=== PATIENT | female | born 1990 | race Caucasian/White ===

== ENCOUNTER 2019-06-09 21:28 | Inpatient (IN) | payer OTHER, SELFPAY ==
[2019-06-09] VITALS (40 sets, daily range): BP systolic 104–211; BP diastolic 59–198; PULSE 79–160; TEMP 36.6; O2SAT 95–100; BMI 31.6
[2019-06-09 21:58] LABS: Basophils Percent Auto 0.3 % (0.2-1.2); Eosinophils Absolute Auto 0.1 K/mm3 (0-0.3); Eosinophils Percent Auto 0.7 % (0-4.4); Hematocrit 38.9 % (37.0-47.0); Hemoglobin 13.2 g/dL (12.0-15.0); Immature Granulocyte Absolute 0.07 K/mm3 (0.00-0.031); Immature Granulocyte Percent A 0.6 % (0-0.5); Lymphocytes Absolute Auto 2.82 K/mm3 (0.9-3.2); Lymphocytes Percent Auto 25.2 % (18.3-44.2); Mean Corpuscular HGB Conc 33.9 g/dl (32-36); Mean Corpuscular Hemoglobin 31.1 pg (26-34); Mean Corpuscular Volume 91.7 fl (80-100); Mean Platelet Volume 9.6 fl (7.4-10.4); Monocytes Absolute Auto 0.8 K/mm3 (0.1-0.6); Monocytes Percent Auto 7.1 % (2.6-8.5); Neutrophils Absolute Auto 7.4 K/mm3 (1.3-6.7); Neutrophils Percent Auto 66.1 % (45.5-73.1); Platelet Count Result 346 k/mm3 (150-375); Red Blood Count 4.24 M/mm3 (4.2-5.4); Red Cell Distribution Width 13.9 % (11.5-14.5); White Blood Count 11.2 K/mm3 (4.5-10.0)
[2019-06-09] MEDS: LACTATED RINGERS 1,000 ML 125 ML IV CONT (21:59)
[2019-06-09] MEDS: AMPICILLIN 2 GM/NS 100 ML 2 GM/100 ML BAG IVPB (21:59)
--- NOTE | 2019-06-09 22:07 | LDADM ---
This patient, Thelma Bain, was admitted to Labor/Delivery/Recovery 105 on 06/09/19 at 21:28. Plans for labor, pain management and were discussed with patient. Patient/family oriented to hospital policies and general routines including ID bracelet, bed and alarms, visiting hours, pain management, procedures, bathroom and other care routines, personal items, smoking policy, room service/diet and guest tray routines, security routines, and visiting hours. Patient/Family are encouraged to report perceived risks to care and to ask questions if they do not understand what they are told or what they should do. See OBIX for further documentation.
--- NOTE | 2019-06-09 22:14 | WPDHPUPDATE1 ---
History and Physical Update Update Date/Time: 06/09/19 22:14 Thelma Bain is a 28 yo at 38w6d who presents in labor. She denies any vaginal bleeding or LOF. She endorses good movement. Her has been uncomplicated to this date. History and Physical has been reviewed, including an updated exam of the patient. There are NO changes in the patient's condition. Risks, benefits, and alternatives have been discussed and questions answered. Patient agrees to proceed with procedure. A/P: admit to L&D routine admission orders GBS+, will start abx Rh+ FHT category 1 regular contractions on toco patient may have epidural expectant management
--- NOTE | 2019-06-09 22:29 | P.PNAN_ITS ---
Anes - Eval Pre Procedure Procedure: labor epidural Date/Time: 06/09/19 22:29 Surgeon: Yoselyn Preop Diagnosis: Labor pain Pre Op Diagnosis: contractions Patient Data Age: 28 Gender: F Height: Weight: Last Vital Signs Temp 36.6 C 06/09/19 22:02 Pulse 104 H 06/09/19 22:28 BP 119/78 06/09/19 22:28 Pulse Ox 100 06/09/19 22:24 Allergies Allergy/AdvReac Type Severity Reaction Status Date / Time No Known Allergies Allergy Verified 05/28/19 13:25 Home Medications Medication Instructions Recorded Confirmed Type PNV cmb#95-ferrous fumarate-FA 1 tablet PO DAILY 05/28/19 05/28/19 History [] Laboratory Tests 06/09/19 06/09/19 06/09/19 21:50 21:50 21:50 WBC 11.2 K/mm3 H K/mm3 (4.5-10.0) RBC 4.24 M/mm3 M/mm3 (4.2-5.4) Hgb 13.2 g/dL g/dL (12.0-15.0) Hct 38.9 % % (37.0-47.0) MCV 91.7 fl fl (80-100) MCH 31.1 pg pg (26-34) MCHC 33.9 g/dl g/dl (32-36) RDW 13.9 % % (11.5-14.5) Plt Count 346 k/mm3 k/mm3 (150-375) MPV 9.6 fl fl (7.4-10.4) Immature Gran % (Auto) 0.6 % H % (0-0.5) Neut % (Auto) 66.1 % % (45.5-73.1) Lymph % (Auto) 25.2 % % (18.3-44.2) [place] % (Auto) 7.1 % % (2.6-8.5) Eos % (Auto) 0.7 % % (0-4.4) Baso % (Auto) 0.3 % % (0.2-1.2) Lymph # (Auto) 2.82 K/mm3 K/mm3 (0.9-3.2) [place] # (Auto) 0.8 K/mm3 H K/mm3 (0.1-0.6) Eos # (Auto) 0.1 K/mm3 K/mm3 (0-0.3) Baso # (Auto) 0.0 K/mm3 K/mm3 (0.0-0.1) Abs Immat Gran (auto) 0.07 K/mm3 H K/mm3 (0.00-0.031) Absolute Neuts (auto) 7.4 K/mm3 H K/mm3 (1.3-6.7) Absolute Nucleated RBC 0.0 K/mm3 K/mm3 (0.0-0.012) Nucleated RBC % 0.0 % % (0.0-0.2) RPR Pending Blood Type Pending Antibody Screen Pending Patient hx anesthesia problems: none Family hx anesthesia problems: none PMFSH Family History Family History (Updated 05/28/19 @ 13:27 by Shaheed Argueta RN) Other No pertinent family history Social History Social History Smoking status: Never smoker Second hand tobacco smoke exposure: No Substance use: never Gender identity (if verbalized by the patient): Female Spiritual care concerns: No Exam Day of Procedure 06/09/19 22:29
[2019-06-10] VITALS (25 sets, daily range): BP systolic 105–194; BP diastolic 60–161; PULSE 75–162; RESP 12–18; TEMP 36.7–36.9; O2SAT 97–100
[2019-06-10] MEDS: OXYTOCIN 30 UNITS/NS 500 ML 30 UNITS/500 ML BAG 999 UNITS IV CONT (01:00)
--- NOTE | 2019-06-10 01:08 | PM.OBPRVD ---
OB - Delivery Note Procedure Procedure: Patient pushed for a spontaneous vaginal delivery. The fetus was delivered atraumatically and placed on the maternal abdomen. The cord was clamped and cut after 1 minute of life. The cord was double clamped and cut and a segment of cord was collected for cord gases. Cord blood was collected for blood type and Coomb's testing. The placenta delivered spontaneously and was noted to be intact. The perineum was inspected and there was a 1st degree perineal laceration. The laceration was repaired with 3-0 vicryl in the usual fashion. The uterus was firm and good hemostasis was noted. The patient and fetus were stable in the delivery room. events: Meconium Stained Fluid Induction method: none Delivery augmentation: rupture of membranes Delivery monitor: external FHT Route of delivery: Episiotomy description: None Laceration description: Perineal - 1st Degree Delivery repair: vicryl Specimen: No Estimated blood loss (mL): 200 Anesthesia type: Epidural Disposition: floor () Complications: No immediate complications Baby Date of : 06/10/19 Time of : 00:55 Weeks of gestation at delivery: 39 gender: Female Weight (pounds): 7 Weight (ounces): 3 presentation: vertex position: Right Occiput Anterior Placenta delivery description: Spontaneous cord vessel description: 3 Vessels and Clamped/Cut score one minute: 8 score five minutes: 9
[2019-06-10] MEDS: IBUPROFEN 600 MG TABLET PO (03:24)
[2019-06-10] MEDS: WITCH HAZEL 40 PADS 1 PAD TOPICAL (03:25)
[2019-06-10] MEDS: BENZOCAINE 20% AER SPR (*SP) 56 GM CAN 1 SPRAY TOPICAL (03:25)
--- NOTE | 2019-06-10 03:42 | PC.NURSE ---
Patient transferred to post room #282 via wheelchair. Support person present. Oriented to unit, room, information board, rooming in, admission packet and security measures. Patient verbalizes understanding.
--- NOTE | 2019-06-10 07:42 | PM.OBPNVD ---
OB - PN: Subj Subjective Date/time seen: 06/10/19 07:42 Patient comments: no complaints, pain well controlled and tolerating diet [place] feeding status: exclusively breast feeding Narrative: patient doing well this AM. No complaints. Pain is well controlled. She reports minimal bleeding. She is ambulating and voiding without difficulty. She is tolerating PO. She denies N/V, fever, chills. OB - PN: Obj Data Labs CBC & Chem 7: 06/09/19 21:50 Labs: Laboratory Results - last 24 hr 06/09/19 06/09/19 21:50 21:50 WBC 11.2 H RBC 4.24 Hgb 13.2 Hct 38.9 MCV 91.7 MCH 31.1 MCHC 33.9 RDW 13.9 Plt Count 346 MPV 9.6 Immature Gran % (Auto) 0.6 H Neut % (Auto) 66.1 Lymph % (Auto) 25.2 [place] % (Auto) 7.1 Eos % (Auto) 0.7 Baso % (Auto) 0.3 Lymph # (Auto) 2.82 [place] # (Auto) 0.8 H Eos # (Auto) 0.1 Baso # (Auto) 0.0 Abs Immat Gran (auto) 0.07 H Absolute Neuts (auto) 7.4 H Absolute Nucleated RBC 0.0 Nucleated RBC % 0.0 Blood Type A Positive Antibody Screen Negative OB - PN A/P Plan day: 1 Plan: routine care Comments: patient doing well H/H stable continue routine care Time Spent With Patient Time: Total time spent is greater than 50% in coordination of care (as documented) at patient's floor/unit and/or counseling patient: Time with patient: less than 15 minutes Review of Systems Review of Systems: All systems reviewed & are unremarkable except as noted in HPI and below Exam Const: General: comfortable and no acute distress Resp: Effort & Inspection: normal respiratory effort Cardio: Rate: regular rate GI: GI Palp: Yes Soft to palpation and No Tenderness to palpation present (GI) Auscultation: normal bowel sounds Other: fundus firm and below umbilicus. Psych: Affect: normal affect
[2019-06-10] MEDS: MULTIVIT/MIN/PREN/FOL AC/IRON TABLET 1 TAB PO (07:50)
[2019-06-10] MEDS: DOCUSATE SODIUM 100 MG CAPSULE PO (07:50)
[2019-06-11 05:27] LABS: Hematocrit 37.2 % (37.0-47.0); Hemoglobin 12.3 g/dL (12.0-15.0)
--- NOTE | 2019-06-11 07:32 | PM.OBDSVD ---
OB - DS: Summary OB Procedures : None OB Procedures Intrapartum: Spontaneous Vag Delivery OB Procedures: : None Status at Discharge Functional status at discharge: independent ambulation Overall status at discharge: patient is back to baseline Time Spent with Patient Time attestation: Total time spent providing and/or coordinating discharge services: Time spent: Less than 30 minutes Exam Const: General: comfortable and no acute distress Resp: Effort & Inspection: normal respiratory effort Auscultation: clear to auscultation bilaterally Cardio: Rate: regular rate GI: GI Palp: Yes Soft to palpation Auscultation: normal bowel sounds Other: Fundus firm below umbilicus Psych: Appearance: grossly normal Mental Status: mental status grossly normal Affect: normal affect DS: Data Data Completed and Pending Labs on day of discharge: Labs from last 24 hours 06/11/19 04:28 Hgb 12.3 Hct 37.2 Discharge Plan Discharge Discharging Clinician: Jaylen Toptee Patient Disposition: Home, Self-Care Activity: may shower, as tolerated and pelvic rest Diet: regular Patient Instructions: Antibiotic Form Stand Alone Forms: General Discharge Information Follow-up/Referrals: Ru Trammell MD [Physician] - 4 Weeks Discharge Medications: New ibuprofen 600 mg Tablet 600 mg PO Q6H PRN (Reason: Cramping) Qty: 30 RF: 0 acetaminophen [Mapap (acetaminophen)] 325 mg Tablet 650 mg PO Q6H PRN (Reason: Mild Pain (1-3) Or Headache) Qty: 30 RF: 0 Dermoplast (with menthol) 20-0.5 % Aerosol 1 spray topical PRN PRN (Reason: Perineal Discomfort) Qty: 1 RF: 0 Zen-I-Onqzyt Cream 1 applic topical PRN PRN (Reason: Sore Nipples) Qty: 1 RF: 0 Continued PNV cmb#95-ferrous fumarate-FA [] 28 mg iron- 800 mcg Tablet 1 tablet PO DAILY RF: 0 Date of admission: 06/09/19 21:28 Primary Care Provider: UNKNOWN,DOCTOR Admitting Provider: Ru Trammell Attending physician on admission: Ru Trammell
--- NOTE | 2019-06-11 08:00 | WPDANLDPN2 ---
Anes-Prog Note L&D Date/Time: 06/11/19 08:00 Comfortable throughout: labor and delivery Neuraxial method: epidural Epidural/Spinal procedure site: clean & non-tender Neuro status: Neuro function grossly intact. Cardiovascular status: normal Respiratory status: normal Airway patency: baseline Mental status: baseline Post-Op hydration status: normal Vital Signs: Last Vital Signs Temp 36.7 C 06/10/19 19:00 Pulse 83 06/10/19 19:00 Resp 16 06/10/19 19:00 BP 113/69 06/10/19 19:00 Pulse Ox 97 06/10/19 08:22 Post-procedural complaints: none Patient feedback: Patient satisfied with anesthetic care.
[2019-06-11 08:35] VITALS: BP 111/74; PULSE 81; RESP 18; TEMP 36.4
[2019-06-11 09:40] LABS: Rapid Plasma Reagin Non-Reactive (NonReactive)
[2019-06-12 10:51] VITALS: BP 132/78; PULSE 83; RESP 20; TEMP 36.9
== END 2019-06-11 10:17 | disposition home or self-care (01) | DRG 807 ==
LOC: ANHLDR 21:44 → ANHOB2 06-11 07:33 → ANHLDR 06-12 09:38 → ANHOB2 06-12 09:38
PROVIDERS: Admitting Provider Student in an Organized Health Care Education/Training Program; Visit Provider Student in an Organized Health Care Education/Training Program
DX: O99.824 Streptococcus B carrier state complicating childbirth (principal); Z37.0 Single live birth; Z3A.39 39 weeks gestation of pregnancy; O70.0 First degree perineal laceration during delivery; Z23 Encounter for immunization; O77.0 Labor and delivery complicated by meconium in amniotic fluid
CPT/HCPCS: 36415; 85014; 85018; 85025; 86592; 86850; 86900; 86901; A9270; J0290; J2590; J2795; J7120

== ENCOUNTER 2020-08-22 17:40 | Emergency (ER) | payer BC, SELFPAY ==
[2020-08-22 17:53] VITALS: BP 123/73; PULSE 114; RESP 20; TEMP 36.6; O2SAT 96
[2020-08-22 18:03] LABS: Basophils Percent Auto 0.1 % (0.2-1.2); Eosinophils Percent Auto 0.1 % (0-4.4); Hematocrit 40.5 % (37.0-47.0); Hemoglobin 13.3 g/dL (12.0-15.0); Immature Granulocyte Absolute 0.07 K/mm3 (0.00-0.031); Immature Granulocyte Percent A 0.5 % (0-0.5); Lymphocytes Absolute Auto 0.83 K/mm3 (0.9-3.2); Mean Corpuscular HGB Conc 32.8 g/dl (32-36); Mean Corpuscular Hemoglobin 31.2 pg (26-34); Mean Corpuscular Volume 95.1 fl (80-100); Mean Platelet Volume 8.6 fl (7.4-10.4); Monocytes Absolute Auto 0.5 K/mm3 (0.1-0.6); Monocytes Percent Auto 3.8 % (2.6-8.5); Neutrophils Absolute Auto 12.5 K/mm3 (1.3-6.7); Neutrophils Percent Auto 89.5 % (45.5-73.1); Platelet Count Result 332 k/mm3 (150-375); Red Blood Count 4.26 M/mm3 (4.2-5.4); Red Cell Distribution Width 12.9 % (11.5-14.5); White Blood Count 13.9 K/mm3 (4.5-10.0)
[2020-08-22 18:13] LABS: Alanine Aminotransferase 13 U/L (4-35); Albumin Level 3.8 g/dL (3.5-5.1); Alkaline Phosphatase 61 U/L (38-126); Anion Gap 9 mmol/L (8-16); Aspartate Amino Transferase 22 U/L (14-36); Bilirubin,Total 0.8 mg/dL (0.2-1.3); Blood Urea Nitrogen 5 mg/dL (7-17); Carbon Dioxide 20 mmol/L (22-30); Chloride 107 mmol/L (98-107); Estimated CRCL calculation 125 ml/min; Estimated Glomerular Filt Rate > 60; Glucose 83 mg/dL (65-105); Lipase 83 U/L (23-300); Potassium 3.7 mmol/L (3.4-5.0); Sodium 136 mmol/L (137-145)
[2020-08-22 18:43] LABS: Add Urine Microscopic? YES; Appearance Urine Cloudy (Clear); Bacteria Urine Trace /hpf; Bilirubin Urine Negative (Negative); Blood Urine Negative (Negative); Color Urine Yellow (Yellow); Glucose Urine UA Negative (Negative); Ketones Urine 2+ mg/dL (Negative); Leukocyte Esterase Ur Negative LEU/UL (Negative); Mucus Urine Few /lpf; Nitrate Urine Negative (Negative); Protein Urine 2+ mg/dL (Negative); Specific Grav Ur 1.025 (1.001-1.035); Squamous Epithelial Cell Urine Many /hpf (Few); Urobilinogen Urine Negative mg/dL (<2.0); WBC Urine 0-3 /hpf
[2020-08-22] MEDS: ONDANSETRON INJ 4 MG/2 ML VIAL IV PUSH (19:46)
--- NOTE | 2020-08-22 20:38 | ED.NAVMDI ---
HPI - Nausea/Vomiting/Diarrhea General Chief complaint: Nausea/Vomiting/Diarrhea Stated complaint: N/V 26 weeks Time Seen by Provider: 08/22/20 19:30 History of Present Illness HPI Narrative: Patient is a 30-year-old female who presents to the ER with nausea and vomiting. She is 26 weeks along in her . She sees Dr. Trammell. She reports that she has had 5-6 episodes of emesis today with 2 loose stools. No fevers or chills or sweats. No known sick contacts. No abdominal pain or cramping. She feels her baby moving. No vaginal bleeding or leakage of fluid from vagina. She has been unable to keep down food or water and was referred here for hydration. Related Data Home Medications Medication Instructions Recorded Confirmed PNV cmb#95-ferrous fumarate-FA 1 tablet PO DAILY 05/28/19 05/28/19 [] Allergies Allergy/AdvReac Type Severity Reaction Status Date / Time No Known Allergies Allergy Verified 06/29/19 08:19 Review of Systems Review of Systems: All systems reviewed & are unremarkable except as noted in HPI and below Constitutional: Constitutional: Denies chills, Denies fever(s) and Denies weakness ENT: Denies nasal congestion and Denies sore throat Gastrointestinal: Gastrointestinal: Denies abdominal pain, Denies constipation, Reports diarrhea, Reports nausea and Reports vomiting Genitourinary: Genitourinary: Denies abnormal vaginal bleeding, Denies nocturia, Denies dysuria, Denies pelvic pain and Denies vaginal discharge PMFSH Past Medical History Medical History (Updated 08/22/20 @ 21:27 by Oleg Leslie MD) Healthy female adult Surgical History Surgical History (Updated 08/22/20 @ 20:39 by Oleg Leslie MD) No history of previous surgery Family History Family History (System 06/29/19 @ 08:19 by Yahaira Roman) Other No pertinent family history Social History Social History (System 06/29/19 @ 08:19 by Yahaira Roman) Smoking status: Never smoker Second hand tobacco smoke exposure: No Substance use: never Gender identity (if verbalized by the patient): Female Spiritual care concerns: No Exam Narrative: Exam Narrative: GENERAL: Well-appearing, well-nourished, and in no acute distress. HEAD: Normocephalic, atraumatic. CHEST: Clear to auscultation. No respiratory distress. HEART: Tachycardic and regular. Normal peripheral pulses. ABDOMEN: Soft, nontender, nondistended. EXTREMITIES: Normal range of motion. No edema. SKIN: Warm, dry, no rash. NEURO: Alert and oriented x3. PSYCH: Normal mood and affect. Course Course Emergency Course: Patient feels much better after antiemetics and IV fluids. OB currently in the room monitoring baby. Patient be discharged as well as her no issues with OB assessment. Vital Signs Vital signs: Vital Signs Temperature 97.9 F 08/22/20 17:53 Pulse Rate 114 H 08/22/20 17:53 Respiratory Rate 20 08/22/20 17:53 Blood Pressure 123/73 08/22/20 17:53 Pulse Oximetry 96 08/22/20 17:53 Temperature 97.9 F 08/22/20 17:53 Pulse Rate 117 H 08/22/20 21:01 Respiratory Rate 20 08/22/20 20:59 Blood Pressure 116/60 08/22/20 21:01 Pulse Oximetry 100 08/22/20 20:59 MDM - Nausea/Vomiting/Diarrhea Lab Data Result diagrams: 08/22/20 17:58 08/22/20 17:58 Labs: Lab Results 08/22/20 08/22/20 08/22/20 Range/Units 17:58 17:58 18:26 WBC 13.9 H (4.5-10.0) K/mm3 RBC 4.26 (4.2-5.4) M/mm3 Hgb 13.3 (12.0-15.0) g/dL Hct 40.5 (37.0-47.0) % MCV 95.1 (80-100) fl MCH 31.2 (26-34) pg MCHC 32.8 (32-36) g/dl RDW 12.9 (11.5-14.5) % Plt Count 332 (150-375) k/mm3 MPV 8.6 (7.4-10.4) fl Immature Gran % (Auto) 0.5 (0-0.5) % Neut % (Auto) 89.5 H (45.5-73.1) % Lymph % (Auto) 6.0 L (18.3-44.2) % [place] % (Auto) 3.8 (2.6-8.5) % Eos % (Auto) 0.1 (0-4.4) % Baso % (Auto) 0.1 L (0.2-1.2) %
[2020-08-22 20:59] VITALS: BP 100/60; PULSE 109; RESP 20; O2SAT 100
[2020-08-22 21:00] VITALS: BP 100/60; BP 94/49; PULSE 106; PULSE 109
[2020-08-22 21:01] VITALS: BP 116/60; PULSE 117
--- NOTE | 2020-08-22 21:09 | PC.NURSE ---
OB CONTACTED PER ERP DR LEAL REQUEST.
[2020-08-22 21:45] VITALS: BP 112/56; PULSE 93
[2020-08-22 23:01] VITALS: BP 121/65; PULSE 85; RESP 16; O2SAT 100
== END 2020-08-22 23:03 | disposition home or self-care (01) ==
PROVIDERS: Emergency Medicine; Emergency Provider Emergency Medicine
DX: O99.612 Diseases of the digestive system complicating pregnancy, second trimester (principal); K52.9 Noninfective gastroenteritis and colitis, unspecified; Z3A.26 26 weeks gestation of pregnancy
CPT/HCPCS: 36415; 80053; 81001; 83690; 85025; 96361; 96374; 99284; J2405; J7030

== ENCOUNTER 2020-11-26 06:55 | Inpatient (IN) | payer BC, SELFPAY ==
[2020-11-26] VITALS (60 sets, daily range): BP systolic 75–137; BP diastolic 32–89; PULSE 72–123; RESP 16–18; TEMP 36.1–36.9; O2SAT 95–100; BMI 30.3
--- NOTE | 2020-11-26 07:51 | WPDOBADMIT ---
Obstetrics - Admit Note Admission Note: record reviewed. Additions to the history and/or subsequent changes in the physical findings follow. 30 y/o at 40 1/7 weeks here for induction of labor. GBS neg. EFW 7#1oz on ultrasound last week. AVSS NST reactive TOCO: rare contractions ABD soft, nontender, gravid, vertex EXT nontender Cervix 4/50/-2. Vertex. AROM with clear fluid. IUPC placed. A: IUP at 40 1/7 weeks here for induction of labor. P: Oxytocin. Anticipate .
[2020-11-26 07:52] LABS: Basophils Percent Auto 0.4 % (0.2-1.2); Eosinophils Absolute Auto 0.2 K/mm3 (0-0.3); Eosinophils Percent Auto 2.3 % (0-4.4); Hematocrit 37.3 % (37.0-47.0); Hemoglobin 12.3 g/dL (12.0-15.0); Immature Granulocyte Absolute 0.06 K/mm3 (0.00-0.031); Immature Granulocyte Percent A 0.7 % (0-0.5); Lymphocytes Percent Auto 25.1 % (18.3-44.2); Mean Corpuscular Hemoglobin 31.2 pg (26-34); Mean Corpuscular Volume 94.7 fl (80-100); Mean Platelet Volume 8.9 fl (7.4-10.4); Monocytes Absolute Auto 0.6 K/mm3 (0.1-0.6); Monocytes Percent Auto 7.4 % (2.6-8.5); Neutrophils Absolute Auto 5.4 K/mm3 (1.3-6.7); Neutrophils Percent Auto 64.1 % (45.5-73.1); Platelet Count Result 332 k/mm3 (150-375); Red Blood Count 3.94 M/mm3 (4.2-5.4); Red Cell Distribution Width 13.1 % (11.5-14.5); White Blood Count 8.4 K/mm3 (4.5-10.0)
[2020-11-26] MEDS: OXYTOCIN 30 UNITS/NS 500 ML 30 UNITS/500 ML BAG IV CONT (08:55)
[2020-11-26] MEDS: LACTATED RINGERS 1,000 ML 125 ML IV CONT ×2 (08:58→11:03)
--- NOTE | 2020-11-26 09:29 | WPDANESEPPF ---
Anes - Initial Pre Proc Eval Procedure: labor epidural Date/Time: 11/26/20 09:29 Surgeon: Ru Trammell MD Pre Op Diagnosis: labor pain Pre Op Diagnosis: IOL Patient Data Age: 30 Gender: F Height: 1.65 m Weight: 82.7 kg Last Vital Signs Pulse 86 11/26/20 09:26 BP 121/59 L 11/26/20 09:26 Pulse Ox 100 11/26/20 09:25 Allergies Allergy/AdvReac Type Severity Reaction Status Date / Time No Known Allergies Allergy Verified 06/29/19 08:19 Home Medications Medication Instructions Recorded Confirmed Type PNV cmb#95-ferrous fumarate-FA 1 tablet PO DAILY 05/28/19 10/27/20 History [] Laboratory Tests 11/26/20 11/26/20 07:19 07:19 WBC 8.4 K/mm3 K/mm3 (4.5-10.0) RBC 3.94 M/mm3 L M/mm3 (4.2-5.4) Hgb 12.3 g/dL g/dL (12.0-15.0) Hct 37.3 % % (37.0-47.0) MCV 94.7 fl fl (80-100) MCH 31.2 pg pg (26-34) MCHC 33.0 g/dl g/dl (32-36) RDW 13.1 % % (11.5-14.5) Plt Count 332 k/mm3 k/mm3 (150-375) MPV 8.9 fl fl (7.4-10.4) Immature Gran % (Auto) 0.7 % H % (0-0.5) Neut % (Auto) 64.1 % % (45.5-73.1) Lymph % (Auto) 25.1 % % (18.3-44.2) [place] % (Auto) 7.4 % % (2.6-8.5) Eos % (Auto) 2.3 % % (0-4.4) Baso % (Auto) 0.4 % % (0.2-1.2) Lymph # (Auto) 2.10 K/mm3 K/mm3 (0.9-3.2) [place] # (Auto) 0.6 K/mm3 K/mm3 (0.1-0.6) Eos # (Auto) 0.2 K/mm3 K/mm3 (0-0.3) Baso # (Auto) 0.0 K/mm3 K/mm3 (0.0-0.1) Abs Immat Gran (auto) 0.06 K/mm3 H K/mm3 (0.00-0.031) Absolute Neuts (auto) 5.4 K/mm3 K/mm3 (1.3-6.7) Absolute Nucleated RBC 0.0 K/mm3 K/mm3 (0.0-0.012) Nucleated RBC % 0.0 % % (0.0-0.2) RPR Pending Patient hx anesthesia problems: none Family hx anesthesia problems: none PMFSH Past Medical History Medical History (Updated 08/23/20 @ 00:00 by Sondra Jackson) Healthy female adult Surgical History Surgical History (Updated 08/22/20 @ 20:39 by Oleg Leslie MD) No history of previous surgery Family History Family History (System 06/29/19 @ 08:19 by Yahaira Roman) Other No pertinent family history Social History Social History (System 06/29/19 @ 08:19 by Yahaira Roman) Smoking status: Never smoker Second hand tobacco smoke exposure: No Substance use: never Gender identity (if verbalized by the patient): Female Spiritual care concerns: No Anes - Eval Final PreProcedure Day of Procedure 11/26/20 09:29 Patient weight: obese ASA classification: II Anesthesia type and monitoring: regional epidural Informed Consent: The patient's anesthetic plan and its attendant risks and benefits were discussed with the patient/family/POA. Questions were solicited and answers provided to the satisfaction of the patient/family/POA.
[2020-11-26 10:01] LABS: Rapid Plasma Reagin Non-Reactive (NonReactive)
--- NOTE | 2020-11-26 11:40 | P.PCNOB_ITS ---
OB - Delivery Note Procedure Delivery date: 11/26/20 Procedure: Induction of labor with Induction method: AROM and per pitocin protocol Delivery monitor: external FHT, external uterine and internal uterine Route of delivery: Laceration Description: Perineal - 1st Degree Delivery repair: vicryl (3-0) Specimen: Yes (cord blood) Quantitative Blood Loss (ml): 110 Anesthesia type: Epidural Disposition: PACU Complications: None Narrative: 30 y/o at 40 1/7 weeks gestation who presented to the hospital for induction of labor. Oxytocin was administered intravenously. Amniotomy was performed with return of clear fluid. She received an epidural for pain control. Her labor progressed and her cervix dilated completely. She pushed with good effort and delivered the 's head to the perineum. A loose nuchal cord was splinted. The body delivered and the cord was reduced. The nose and mouth were bulb suctioned. After a delay, the cord was clamped and cut. The infant was handed off the field. Cord blood was collected. The placenta delivered spontaneously and was grossly normal in appearance. The usual 3 vessel cord was noted. A first degree midline perineal laceration was sustained. This was reapproximated using 3 0 Vicryl in a single figure of eight suture. Excellent hemostasis resulted as did excellent reapproximation of the normal anatomy. Needle and instrument counts were correct. The patient was taken to recovery room in stable condition. The went to the nursery in stable condition. I was present and scrubbed for the entire delivery. [place] Baby Date of : 11/26/20 Time of : 11:23 Weeks of gestation at delivery: 40 Infant gender: Female Weight (pounds): 7 Weight (ounces): 2 presentation: vertex position: Left Occiput Anterior Placenta delivery description: Spontaneous and Normal Configuration cord vessel description: 3 Vessels, Nuchal Cord and Delayed Cord Clamping score one minute: 9 score five minutes: 9
[2020-11-26] MEDS: OXYTOCIN 30 UNITS/NS 500 ML 30 UNITS/500 ML BAG 125 UNITS IV CONT (11:55)
[2020-11-26] MEDS: BENZOCAINE 20% AER SPR (*SP) 56 GM CAN 1 SPRAY TOPICAL (13:51)
[2020-11-26] MEDS: WITCH HAZEL 40 PADS 1 PAD TOPICAL (13:51)
--- NOTE | 2020-11-26 13:59 | PM.OBDSVD ---
DS: Admitting Diagnosis Admitting Diagnosis IUP at 40 1/7weeks Favorable cervix DS: Discharge Diagnosis Discharge Diagnosis (1) (normal spontaneous vaginal delivery): Code(s): O80 - Encounter for full-term uncomplicated delivery Status: Acute OB - DS: Summary OB Procedures : None OB Procedures Intrapartum: Spontaneous Vag Delivery OB Procedures: : None DS: Data Data Completed and Pending Labs on day of discharge: Labs from last 24 hours 11/26/20 11/26/20 11/26/20 07:19 07:19 07:19 WBC 8.4 RBC 3.94 L Hgb 12.3 Hct 37.3 MCV 94.7 MCH 31.2 MCHC 33.0 RDW 13.1 Plt Count 332 MPV 8.9 Immature Gran % (Auto) 0.7 H Neut % (Auto) 64.1 Lymph % (Auto) 25.1 [place] % (Auto) 7.4 Eos % (Auto) 2.3 Baso % (Auto) 0.4 Lymph # (Auto) 2.10 [place] # (Auto) 0.6 Eos # (Auto) 0.2 Baso # (Auto) 0.0 Abs Immat Gran (auto) 0.06 H Absolute Neuts (auto) 5.4 Absolute Nucleated RBC 0.0 Nucleated RBC % 0.0 RPR Non-reactive Blood Type A Positive Antibody Screen Negative Discharge Plan Discharge Attending physician on discharge: Ru Trammell Discharging Clinician: Ru Trammell Patient Disposition: Home, Self-Care Activity: pelvic rest Diet: regular Discharge Instructions: Call or return if temperature above 100.4? F, increased abdominal pain, increased vaginal bleeding or any new problems. Stand Alone Forms: General Discharge Information Follow-up/Referrals: Ru Trammell MD [Physician] - 6 Weeks Discharge Medications: New ibuprofen 600 mg tablet 600 mg PO Q6H PRN (Reason: cramps) Qty: 30 RF: 0 fluoxetine 20 mg capsule 20 mg PO DAILY Qty: 30 RF: 1 No Action PNV cmb#95-ferrous fumarate-FA [] 28 mg iron- 800 mcg Tablet 1 tablet PO DAILY RF: 0 Date of admission: 11/26/20 06:55 Primary Care Provider: PHYSICIAN,FUSE CUTTER Admitting Provider: Ru Trammell Attending physician on admission: Ru Trammell Condition: Stable
--- NOTE | 2020-11-26 14:09 | OBPPTRN ---
Patient transferred to post room # 292 via wheelchair. Support person present. Oriented to unit, room, information board, rooming in, admission packet and security measures. Patient verbalizes understanding. PT received instructions and education this shift via one to one discussion, mom baby care guide and demonstration. PT and spouse both recipients of such instructions and no barriers to learning identified at this time.
[2020-11-26] MEDS: IBUPROFEN 600 MG TABLET PO ×2 (16:04→23:29)
[2020-11-26] MEDS: DOCUSATE SODIUM 100 MG CAPSULE PO (16:04)
[2020-11-26] MEDS: ACETAMINOPHEN 325 MG TABLET 650 MG PO (16:05)
[2020-11-26] MEDS: LANOLIN (LANSINOH) 7.5 GM CREAM 1 APPLIC TOPICAL (16:07)
[2020-11-27] MEDS: ACETAMINOPHEN 325 MG TABLET 650 MG PO (03:44)
[2020-11-27 04:00] VITALS: BP 107/58; PULSE 75; RESP 16; TEMP 36.9; O2SAT 99
[2020-11-27 05:29] LABS: Hematocrit 35.3 % (37.0-47.0); Hemoglobin 11.3 g/dL (12.0-15.0)
[2020-11-27] MEDS: MULTIVIT/MIN/PREN/FOL AC/IRON TABLET 1 TAB PO (08:48)
--- NOTE | 2020-11-27 09:01 | PM.OBPNVD ---
OB - PN: Subj Subjective Date/time seen: 11/27/20 09:01 Narrative: Pain OK. Would like to go home. OB - PN: Obj Data Labs CBC & Chem 7: 11/27/20 03:49 Labs: Laboratory Results - last 24 hr 11/26/20 11/26/20 11/27/20 07:19 07:19 03:49 Hgb 11.3 L Hct 35.3 L RPR Non-reactive Blood Type A Positive Antibody Screen Negative OB - PN A/P Plan Comments: A: PPD#1, doing well. P: Home to f/u 6 weeks. Exam Psych: Other: AVSS ABD soft, nontender, fundus firm EXT nontender
[2020-11-27 09:10] VITALS: BP 106/73; PULSE 75; RESP 18; TEMP 36.8; O2SAT 99
--- NOTE | 2020-11-27 09:26 | WPDANLDPN2 ---
Anes-Prog Note L&D Date/Time: 11/27/20 09:26 Comfortable throughout: labor and delivery Neuraxial method: epidural Epidural/Spinal procedure site: clean & non-tender Neuro status: Neuro function grossly intact. Cardiovascular status: normal Respiratory status: normal Airway patency: baseline Mental status: baseline Post-Op hydration status: normal Vital Signs: Last Vital Signs Temp 36.9 C 11/27/20 04:00 Pulse 75 11/27/20 04:00 Resp 16 11/27/20 04:00 BP 107/58 L 11/27/20 04:00 Pulse Ox 99 11/27/20 04:00 Pain score (VAS): 0 I/O: Intake & Output 11/26/20 11/27/20 11/27/20 23:59 07:59 15:59 Intake Total 500 Balance 500 Post-procedural complaints: none Patient feedback: Patient satisfied with anesthetic care.
--- NOTE | 2020-11-27 10:15 | PC.NURSE ---
Consult with pt., mother reports this to be third child to breastfeed. Mother has at breast upon entering. is latched deeply nursing with long rhythmic draws and occasional swallowing noted. Mother reports tenderness at times, suggested she hold breast and/or adjust latch if tenderness noted. Advised to stimulate while feeding to keep awake and nursing effectively for increased intake, increased stimulation and to maintain latch. Mother is feeding as required and waking infant to feed if needed. waking to feed and feeding as required, and is currently meeting outcomes for weight, output, jaundice and feeding frequencies. Mother states she feels confident to continue effective at home. Reviewed transition to breast milk, signs of adequate intake, and engorgement/relief. Instructed to call ICP if intake/output less than required. Reviewed regular medications mother is taking. Information provided per [place]. Reviewed community resources on the [employer] website and in the Mom/Baby guide. Information on outpatient services provided. Mother has no further questions at this time.
[2020-11-29 09:28] VITALS: BP 115/58; PULSE 83; RESP 12; TEMP 36.8
== END 2020-11-27 13:52 | disposition home or self-care (01) | DRG 807 ==
LOC: ANHLDR 14:00 → ANHOB2 14:11
PROVIDERS: Admitting Provider Obstetrics & Gynecology; Visit Provider Obstetrics & Gynecology
DX: O69.81X0 Labor and delivery complicated by cord around neck, without compression, not applicable or unspecified (principal); Z37.0 Single live birth; O70.0 First degree perineal laceration during delivery; Z3A.40 40 weeks gestation of pregnancy
CPT/HCPCS: 36415; 85014; 85018; 85025; 86592; 86850; 86900; 86901; A9270; J2590; J2795; J7120

== ENCOUNTER 2022-12-06 09:31 | Outpatient (CLI) | payer OTHER, SELFPAY ==
--- NOTE | 2022-12-06 09:49 | ECG_ITS ---
Measurements Intervals [place] Rate: 90 P: 59 [place]: 127 QRS: 51 QRSD: 81 T: 36 QT: 341 QTc: 419 Interpretive Statements SINUS RHYTHM VENTRICULAR PREMATURE COMPLEX LOW VOLTAGE- DIFFUSE LEADS BORDERLINE ECG NO PREVIOUS ECG AVAILABLE FOR COMPARISON Electronically Signed On 12-06-2022 13:12:17 CDT by Kody Allen D.O.
== END 2022-12-06 09:32 | disposition home or self-care (01) ==
LOC: ANHLAB 09:34 → ANHCARD 09:36
PROVIDERS: Visit Provider Obstetrics & Gynecology
DX: R00.8 Other abnormalities of heart beat (principal)
CPT/HCPCS: 93005

== ENCOUNTER 2024-05-14 15:19 | Outpatient (RCR) | payer SELFPAY ==
--- NOTE | ~2024-05-14 | US_ITS ---
EXAMINATION: US OB BPP wo non-stress DATE: 05/14/2024 17:15 INDICATION: DFM . TECHNIQUE: Real-time ultrasound of the pelvis was performed. COMPARISON: None. FINDINGS: There is a single living fetus in vertex presentation, longitudinal lie. The placenta is posterior. heart rate is 150 bpm. The amniotic fluid index is 18.0 cm, which is normal (5th to 95th percen tile is 7.7 to 24.9 cm). Biophysical profile performed by the technologist: breathing (30 sec sustained breathing in 30 minutes): 2 out of 2. movement (3 gross body movements in 30 minutes: 2 out of 2. tone (one episode of jyquqdy-ryurlpdpr-bjmyjda limb movement): 2 out of 2. Amniotic fluid pocket (2 cm): 2 out of 2. Total score: 8 out of 8. IMPRESSION: Single living fetus in vertex presentation. Biophysical profile 8 out of 8. Reviewed, dictated and finalized at location K. NICAL MAINTENANCE SPECIALIST
[2024-05-14 16:56] VITALS: BP 116/75; PULSE 95
== END 2024-07-18 17:21 | disposition home or self-care (01) ==
LOC: ANHOBOP 15:19
PROVIDERS: Visit Provider Obstetrics & Gynecology
DX: O36.8190 Decreased fetal movements, unspecified trimester, not applicable or unspecified (principal)
CPT/HCPCS: 59025; 76819

== ENCOUNTER 2024-06-06 04:59 | Inpatient (IN) | payer OTHER, SELFPAY ==
[2024-06-06] VITALS (101 sets, daily range): BP systolic 90–143; BP diastolic 58–89; PULSE 75–122; RESP 16; TEMP 36.3–36.8; O2SAT 75–100; BMI 29.7
[2024-06-06] MEDS: OXYTOCIN 30 UNITS/NS 500 ML 30 UNITS/500 ML BAG IV CONT (05:25)
[2024-06-06] MEDS: LACTATED RINGERS 1,000 ML 125 ML IV CONT ×2 (05:25→09:23)
--- NOTE | 2024-06-06 05:27 | LDADM ---
This patient, Thelma Bain, was admitted to Labor/Delivery/Recovery 105 on 06/06/24 at 04:59. Plans for labor, pain management and were discussed with patient. Patient/family oriented to hospital policies and general routines including ID bracelet, bed and alarms, visiting hours, pain management, procedures, bathroom and other care routines, personal items, smoking policy, room service/diet and guest tray routines, infant security routines, and visiting hours. Patient/Family are encouraged to report perceived risks to care and to ask questions if they do not understand what they are told or what they should do. See OBIX for further documentation.
[2024-06-06 05:33] LABS: Basophils Percent Auto 0.3 % (0.2-1.2); Eosinophils Absolute Auto 0.2 K/mm3 (0-0.3); Eosinophils Percent Auto 1.8 % (0-4.4); Hematocrit 38.2 % (37.0-47.0); Hemoglobin 12.5 g/dL (12.0-15.0); Immature Granulocyte Absolute 0.06 K/mm3 (0.00-0.031); Immature Granulocyte Percent A 0.6 % (0-0.5); Lymphocytes Absolute Auto 2.26 K/mm3 (0.9-3.2); Lymphocytes Percent Auto 23.6 % (18.3-44.2); Mean Corpuscular HGB Conc 32.7 g/dl (32-36); Mean Corpuscular Hemoglobin 30.1 pg (26-34); Mean Platelet Volume 9.1 fl (7.4-10.4); Monocytes Absolute Auto 0.6 K/mm3 (0.1-0.6); Monocytes Percent Auto 5.9 % (2.6-8.5); Neutrophils Absolute Auto 6.5 K/mm3 (1.3-6.7); Neutrophils Percent Auto 67.8 % (45.5-73.1); Platelet Count Result 338 k/mm3 (150-375); Red Blood Count 4.15 M/mm3 (4.2-5.4); Red Cell Distribution Width 13.5 % (11.5-14.5); White Blood Count 9.6 K/mm3 (4.5-10.0)
[2024-06-06 06:21] LABS: HIV 1/2 Ab P24 Ag Result Negative (Negative); Syphilis IgG/IgM Antibody Negative (Negative)
--- NOTE | 2024-06-06 08:45 | WPDOBADMIT ---
Obstetrics - Admit Note Admission Note: record reviewed. Additions to the history and/or subsequent changes in the physical findings follow. 33 y/o at 39 5/7 weeks here for induction of labor. GBS neg. H/o fast delivery. AVSS NST reactive TOCO: contractions every 2-4 min ABD soft, nontender, gravid, vertex EXT nontender Cervix 4-5/50/-2. AROM with clear fluid. Vertex. A: IUP at term with favorable cervix. P: Offered induction of labor. Oxytocin. Anticipate .
--- NOTE | 2024-06-06 09:31 | P.PNAN_ITS ---
Anes - Eval Pre Procedure Procedure: labor epidural Date/Time: 06/06/24 09:31 Surgeon: Valeri Preop Diagnosis: labor pain Pre Op Diagnosis: IOL Patient Data Age: 33 Gender: F Height: 1.65 m Weight: 81 kg Last Vital Signs Temp 36.8 C 06/06/24 08:44 Pulse 81 06/06/24 09:30 BP 143/89 H 06/06/24 09:30 Pulse Ox 100 06/06/24 09:29 O2 Del Method Room Air 06/06/24 05:27 Allergies Allergy/AdvReac Type Severity Reaction Status Date / Time No Known Allergies Allergy Verified 06/06/24 05:57 Home Medications ?Medication ?Instructions ?Recorded ?Confirmed ?Type vit no.95-ferrous 1 tablet PO DAILY 05/28/19 10/27/20 History fumarate 28 mg-folic acid 800 mcg tablet () ibuprofen 600 mg tablet 600 mg PO Q6H PRN cramps #30 tabs 11/26/20 Rx fluoxetine 20 mg capsule 20 mg PO DAILY #30 caps 11/27/20 Rx Laboratory Tests 06/06/24 05:20 WBC 9.6 K/mm3 (4.5-10.0) RBC 4.15 L M/mm3 (4.2-5.4) Hgb 12.5 g/dL (12.0-15.0) Hct 38.2 % (37.0-47.0) MCV 92.0 fl (80-100) MCH 30.1 pg (26-34) MCHC 32.7 g/dl (32-36) RDW 13.5 % (11.5-14.5) Plt Count 338 k/mm3 (150-375) MPV 9.1 fl (7.4-10.4) Immature Gran % (Auto) 0.6 H % (0-0.5) Neut % (Auto) 67.8 % (45.5-73.1) Lymph % (Auto) 23.6 % (18.3-44.2) [place] % (Auto) 5.9 % (2.6-8.5) Eos % (Auto) 1.8 % (0-4.4) Baso % (Auto) 0.3 % (0.2-1.2) Lymph # (Auto) 2.26 K/mm3 (0.9-3.2) Crowley # (Auto) 0.6 K/mm3 (0.1-0.6) Eos # (Auto) 0.2 K/mm3 (0-0.3) Baso # (Auto) 0.0 K/mm3 (0.0-0.1) Abs Immat Gran (auto) 0.06 H K/mm3 (0.00-0.031) Absolute Neuts (auto) 6.5 K/mm3 (1.3-6.7) Absolute Nucleated RBC 0.000 K/mm3 (0.0-0.012) Nucleated RBC % 0.0 % (0.0-0.2) Syphilis IgG/IgM Ab Negative (Negative) HIV 1&2 Ab/P24 Ag 4thGn Negative (Negative) Blood Type A Positive Antibody Screen Negative : gestational age (VICTORINA 06/08/24, ) Patient hx anesthesia problems: none Family hx anesthesia problems: none Results Review: All pre-operative results and documents have been reviewed as part of the pre- operative evaluation. COUNTS INCLUDE 234 BEDS AT THE [facility] Past Medical History Medical History Healthy female adult Surgical History Surgical History No history of previous surgery Family History Family History Other Patient denies significant medical history Social History Social History Smoking status: Never smoker Second hand tobacco smoke exposure: No Substance use: never Do You Feel Safe in your Home?: Yes Lack of Transportation: No Lack of Food: Never True Current Housing: I Have Housing Concerned About Future Housing: No Difficulty Paying Gas/Electric Bills: No Difficulty Paying for Meds: No Currently Unemployed: No Education: Associate Degree Difficulty w/ Childcare or Family Care: No Gender identity (if verbalized by the patient): Female Spiritual care concerns: No Exam Day of Procedure 06/06/24 09:31 Patient weight: normal Heart: regular rate and rhythm Lungs: normal air movement Airway: Mallampati scale class II Neurological: alert and oriented
--- NOTE | 2024-06-06 10:47 | P.DS_ITS ---
DS: Admitting Diagnosis Discharge Date 06/08/2024 <Aguila Wallace MD - Last Filed: 06/08/24 08:41> Admitting Diagnosis IUP at 39 5/7 weeks <Ru Trammell MD - Last Filed: 06/06/24 12:03> DS: Discharge Diagnosis Discharge Diagnosis (1) (normal spontaneous vaginal delivery): Code(s): O80 - Encounter for full-term uncomplicated delivery <Ru Trammell MD - Last Filed: 06/06/24 12:03> Status: Acute <Ru Trammell MD - Last Filed: 06/06/24 12:03> OB - DS: Summary OB Procedures : None <Ru Trammell MD - Last Filed: 06/06/24 12:03> OB Procedures Intrapartum: Spontaneous Vag Delivery <Ru Trammell MD - Last Filed: 06/06/24 12:03> OB Procedures: : None <Ru Trammell MD - Last Filed: 06/06/24 12:03> Time Spent with Patient Time attestation: Total time spent providing and/or coordinating discharge services: <Ru Trammell MD - Last Filed: 06/06/24 12:03> DS: Data Data Completed and Pending Labs on day of discharge: Labs from last 24 hours 06/06/24 05:20 WBC 9.6 RBC 4.15 L Hgb 12.5 Hct 38.2 MCV 92.0 MCH 30.1 MCHC 32.7 RDW 13.5 Plt Count 338 MPV 9.1 Immature Gran % (Auto) 0.6 H Neut % (Auto) 67.8 Lymph % (Auto) 23.6 [place] % (Auto) 5.9 Eos % (Auto) 1.8 Baso % (Auto) 0.3 Lymph # (Auto) 2.26 [place] # (Auto) 0.6 Eos # (Auto) 0.2 Baso # (Auto) 0.0 Abs Immat Gran (auto) 0.06 H Absolute Neuts (auto) 6.5 Absolute Nucleated RBC 0.000 Nucleated RBC % 0.0 Syphilis IgG/IgM Ab Negative HIV 1&2 Ab/P24 Ag 4thGn Negative Blood Type A Positive Antibody Screen Negative <Ru Trammell MD - Last Filed: 06/06/24 12:03> Discharge Plan Discharge Attending physician on discharge: Ru Trammell <Ru Trammell MD - Last Filed: 06/06/24 12:03> Ru Trammell <Agiula Wallace MD - Last Filed: 06/08/24 08:41> Discharging Clinician: Ru Trammell <Ru Trammell MD - Last Filed: 06/06/24 12:03> Ru Trammell <Aguila Wallace MD - Last Filed: 06/08/24 08:41> Patient Disposition: Home, Self-Care <Ru Trammell MD - Last Filed: 06/06/24 12:03> Activity: pelvic rest <Ru Trammell MD - Last Filed: 06/06/24 12:03> pelvic rest <Aguila Wallace MD - Last Filed: 06/08/24 08:41> Diet: regular <Ru Trammell MD - Last Filed: 06/06/24 12:03> regular <Aguila Wallace MD - Last Filed: 06/08/24 08:41> Discharge Instructions: Call or return if temperature above 100.4? F, increased abdominal pain, increased vaginal bleeding or any new problems. <Ru Trammell MD - Last Filed: 06/06/24 12:03> Patient Language: Yoruba <Ru Trammell MD - Last Filed: 06/06/24 12:03> Stand Alone Forms: General Discharge Information <Ru Trammell MD - Last Filed: 06/06/24 12:03> Follow-up/Referrals: Ru Trammell MD [Physician] - 6 Weeks <Ru Trammell MD - Last Filed: 06/06/24 12:03> Discharge Medications: New sertraline 50 mg tablet 50 mg PO DAILY Qty: 30 2RF Continued PNV cmb#95-ferrous fumarate-FA [] 28 mg iron- 800 mcg Tablet 1 tablet PO DAILY ibuprofen 600 mg tablet 600 mg PO Q6H PRN (Reason: cramps) Qty: 30 0RF Discontinued fluoxetine 20 mg capsule 20 mg PO DAILY Qty: 30 1RF <Ru Trammell MD - Last Filed: 06/06/24 12:03> Date of admission: 06/06/24 04:59 <Ru Trammell MD - Last Filed: 06/06/24 12:03> Primary Care Provider: UNKNOWN,DOCTOR <Ru Trammell MD - Last Filed: 06/06/24 12:03> Admitting Provider: Ru Trammell <Ru Trammell MD - Last Filed: 06/06/24 12:03> Attending physician on admission: Ru Trammell <Ru Trammell MD - Last Filed: 06/06/24 12:03> Condition: Stable <Ru Trammell MD - Last Filed: 06/06/24 12:03>
--- NOTE | 2024-06-06 10:47 | PM.OBPRVD ---
OB - Vaginal Delivery Note Procedure Delivery date: 06/06/24 Events: Elective Induction of Labor Induction method: Per Pitocin Protocol Delivery augmentation: Rupture of Membranes Delivery monitor: External FHT and External Uterine Route of delivery: Episiotomy description: None Laceration Description: None Specimen: Yes (cord blood) Quantitative Blood Loss (ml): 120 Anesthesia type: Epidural Disposition: PACU Complications: None Narrative: 33 y/o at 39 5/7 weeks gestation who presented to the hospital for induction of labor. Oxytocin was administered intravenously. Amniotomy was performed with return of clear fluid. She received an epidural for pain control. Her labor progressed and her cervix dilated completely. She pushed with good effort and delivered the infant's head to the perineum, followed by the body. The nose and mouth were bulb suctioned. After a delay, the cord was clamped and cut. The infant was handed off the field. Cord blood was collected. The placenta delivered spontaneously. Marginal cord insertion noted. The placenta was otherwise grossly normal in appearance. The usual 3 vessel cord was noted. There were no lacerations. Needle and instrument counts were correct. The patient was taken to recovery room in stable condition. The infant went to the nursery in stable condition. I was present and scrubbed for the entire delivery. [place] Baby Date of : 06/06/24 Time of : 10:35 Gestational Age by Date: 39 gender: Male presentation: vertex position: Left Occiput Anterior Placenta delivery description: Spontaneous and Normal Configuration Cord Vessel Description: 3 Vessels and Delayed Cord Clamping
[2024-06-06] MEDS: OXYTOCIN 30 UNITS/NS 500 ML 30 UNITS/500 ML BAG 125 UNITS IV CONT (11:08)
--- NOTE | 2024-06-06 13:15 | PC.NURSE ---
Patient transferred to post room #291 via wheelchair. Support person present. Oriented to unit, room, information board, rooming in, admission packet and security measures. Patient verbalizes understanding.
--- NOTE | 2024-06-06 16:05 | PC.NURSE ---
1520. Met with patient to assess and discuss needs related to feeding. Mother states it is her intention to exclusively breastfeed, she reports she breastfed her other 3 children. Encouraged mother to breastfeed 8-12 times in 24 hours (approximately every 2-3 hours), watching for early feeding cues. If is sleepy, unwrap and place baby skin to skin. Discussed signs that is effectively , i.e. sufficient voids and stools, jaundice within normal limits, <10% weight loss from . Mother educated on milk production, supply and demand, and expectations for in the immediate period. Encouraged feeding on demand and feeding durations of 15 minutes or greater. Discussed breast/nipple care with good hand hygiene, signs of a correct latch, listening for infant swallows and documenting feedings on the feeding sheet. Mother instructed to call for assistance if infant will not feed every 3 hours, if there is discomfort with , or if mother has any other questions or concerns. resources provided including the Mom and Baby Guide and name/number on communication board. Mother verbalized understanding. Updated patient?s primary RN with education provided.?? 1530. Observed mother latching infant to the left breast in cross cradle position. Infant was able to maintain an appropriate latch. Mother reports a little tightness with infants suckle at the breast but declines pain . Mother reports she would like infant assessed for a tongue tie. Encouraged mother to keep infant awake and nursing at the breast for 15 minutes. 1545. Reported mothers request to have assessed for a tongue tie to the miniature model maker. Diamond Set[employer] Apprentice Dr Haque reports to this RN that she believes infant does not have a tongue tie but maybe some tightness. ???
[2024-06-07 05:00] VITALS: BP 106/71; PULSE 78; RESP 16; TEMP 36.4; O2SAT 97
[2024-06-07 05:13] LABS: Hematocrit 34.3 % (37.0-47.0); Hemoglobin 11.3 g/dL (12.0-15.0)
[2024-06-07 07:40] VITALS: BP 102/61; PULSE 68; RESP 18; TEMP 36.7; O2SAT 97
[2024-06-07] MEDS: MULTIVIT/MIN/PREN/FOL AC/IRON TABLET 1 TAB PO (08:15)
[2024-06-07] MEDS: DOCUSATE SODIUM 100 MG CAPSULE PO (08:23)
--- NOTE | 2024-06-07 08:57 | P.PNOB_ITS ---
OB - PN: Subj Subjective Date/time seen: 06/07/24 08:57 Narrative: Pain OK. Desires circumcision for son. OB - PN: Obj Data Labs 06/07/24 04:51 Labs: Laboratory Results - last 24 hr 06/07/24 04:51 Hgb 11.3 L Hct 34.3 L OB - PN A/P Plan Comments: A: PPD#1, doing well. P: Routine care. Reviewed circ. Exam 2 Psych: Other: AVSS ABD soft, nontender, fundus firm EXT nontender
--- NOTE | 2024-06-07 09:47 | PC.NURSE ---
Introductions were made, then consulted with patient to assess needs related to . Discussed with mother her?plans to feed?her and the?experience so far. Per mother baby had been fussy and not latched for more than 5 minutes this morning. With in room, mother was able to optimally latch baby to her left breast in cross cradle position, mother able to hear swallows, baby is relaxed and well. Resources provided for inpatient and outpatient services with the feeding sheet, mom/baby guide and name written on the communication board. Mother voiced understanding of information and will call if there is a request for assistance. Reported to the Primary RN.
--- NOTE | 2024-06-07 15:28 | PC.NURSE ---
Patient viewed the discharge video Mother & Baby Care, The First Two Weeks . Patient was given the opportunity and encouraged to ask questions. Patient verbalized understanding of information shared and has been given the mother/baby guide for home reference.
[2024-06-07 20:32] VITALS: BP 103/63; PULSE 72; RESP 16; TEMP 37.3; O2SAT 100
[2024-06-07] MEDS: SERTRALINE HCL 50 MG TABLET PO (22:09)
[2024-06-08 07:55] VITALS: BP 103/64; PULSE 69; RESP 18; TEMP 36.4; O2SAT 96
[2024-06-08] MEDS: MULTIVIT/MIN/PREN/FOL AC/IRON TABLET 1 TAB PO (07:57)
[2024-06-08] MEDS: DOCUSATE SODIUM 100 MG CAPSULE PO (07:57)
--- NOTE | 2024-06-08 08:41 | PM.OBPNVD ---
OB - PN: Subj Subjective Date/time seen: 06/08/24 08:41 Patient comments: no complaints, pain well controlled and tolerating diet [place] baby status: doing well OB - PN: Obj Data Labs 06/07/24 04:51 OB - PN A/P Assessment and Plan (1) (normal spontaneous vaginal delivery): Code(s): O80 - Encounter for full-term uncomplicated delivery Status: Acute Plan home Time Spent With Patient Time: Total time spent is greater than 50% in coordination of care (as documented) at patient's floor/unit and/or counseling patient: Review of Systems Review of Systems: All systems reviewed & are unremarkable except as noted in HPI and below Constitutional: Constitutional: Denies chills, Denies fever(s) and Denies weakness ENT: Denies nasal congestion and Denies sore throat Gastrointestinal: Gastrointestinal: Denies abdominal pain, Denies constipation, Reports diarrhea, Reports nausea and Reports vomiting Genitourinary: Genitourinary: Denies abnormal vaginal bleeding, Denies nocturia, Denies dysuria, Denies pelvic pain and Denies vaginal discharge Exam Const: General: cooperative, healthy appearing and comfortable Nutritional Appearance: average body habitus Orientation/consciousness: oriented to person, oriented to place and oriented to time Resp: Effort & Inspection: normal respiratory effort Cardio: Rate: regular rate Rhythm: regular rhythm Heart sounds: S1 normal heart sound present and S2 normal heart sound present
--- NOTE | 2024-06-08 10:00 | PC.NURSE ---
Consulted with mother concerning needs and she shared her ability to independently latch infant optimally without pain. Mother is feeding appropriately for growth of and understands stimulating to eat if needed. Infant has had appropriate feedings in the last 24 hours meets the outcomes for weight, output, blood sugar and jaundice at this time. Reinforced understanding of milk production, transition of milk, signs of adequate intake, transition of stool, prevention/relief of engorgement, plugged ducts, mastitis, responsive watching for feeding cues, community resources, and when to call a provider using the resource of the feeding sheet along with the mom and baby guide. Mother voiced understanding of the information shared, is confident to continue effectively her at home, when to call for assistance, denies any additional assistance or education at this time. Reported to the Primary RN.
[2024-06-09 12:52] VITALS: BP 124/75; PULSE 76; RESP 18; TEMP 36.9; O2SAT 98
== END 2024-06-08 12:00 | disposition home or self-care (01) | DRG 807 ==
LOC: ANHLDR 12:03 → ANHOB2 13:16
PROVIDERS: Admitting Provider Obstetrics & Gynecology; Visit Provider Obstetrics & Gynecology
DX: O43.123 Velamentous insertion of umbilical cord, third trimester (principal); Z37.0 Single live birth; Z3A.39 39 weeks gestation of pregnancy
CPT/HCPCS: 36415; 85014; 85018; 85025; 86593; 86703; 86850; 86900; 86901; A9270; G0432; J2590; J2795; J7120